=== PATIENT | male | born 1950 | race African-American/Black ===

== ENCOUNTER 2016-05-09 02:49 | Emergency (ER) | payer OTHER ==
[~2016-05-09] VITALS: Ht 180.3 cm; Wt 83.9 kg
[~2016-05-09 02:49] MED LIST: ACETAMINOPHEN650 M5 PO; ALBUTEROL2.5 MG/31; AMITRIPTYLINE; ASA5UEC PO; BISACODYL SUPP10 MG; BUDEPRION SR150 MG PO; CARDURA4 MG PO; CATAPRESS3 TOP; CITRATE OF MAG296 ML; CLONAZEPAM PO; COLACE 100 MG100 MG PO; COUMADIN 2 MG TA2 M1 PO; CRESTOR20 MG PO; FERRO-TIME325 MG PO; FISH OIL 1,0001 EAC5 PO; FLEXERIL; FLOMAX PO; FLONASE 0.05%50 MCG INH; GABAPENTIN; ISORDIL40 MG PO; K-DUR 20 MEQ T20 MEQ PO; LABETALOL PO; LEVEMIR SQ; LIDODERM; MAALOX525 MG/15; MIRALAX255 GM; NEURONTIN 300M300 M2 PO; NEURONTIN600 MG PO; NITROGLYCERIN0.4 MG; NORCO 7.5-3251 EACH PO; NORVASC10 MG PO; NOVOLOG100 UNIT/1; OXYBUTYNIN PO; PLAVIX 75 MG TA75 MG PO; RANEXA1000 MG PO; SENOKOT PO; SORBITOL PO; VANCO IV; VITAMIN D-32000 UNIT PO; ZAROXOLYN 5MG TA5 M1 PO; [UNRECOGNIZED DRUG - OTHER]
[2016-05-09 03:19] LABS: HEMATOCRIT 26.8 % (42.0-52.0); MCH 31.4 pg (26.0-34.0); MCHC 33.4 % (28.0-37.0); MCV 93.9 fL (80.0-100.0); PLATELET COUNT 143 thou/uL (150-400); RBC 2.85 mil/uL (4.50-6.00); RDW 17.4 % (10.5-14.5); WBC 4.7 thou/uL (4.0-11.0)
[2016-05-09 03:25] LABS: MANUAL DIFF YES
[2016-05-09] MEDS ORDERED: LEVOTHYROXIN0.025 MG PO (03:28)
[2016-05-09] MEDS ORDERED: KEPPRA 500 MG500 M1 PO ×2 (03:28→03:32)
[2016-05-09] MEDS ORDERED: ZOLOFT50 MG PO (03:30)
[2016-05-09] MEDS ORDERED: SENOKOT-S1 TA1 PO (03:32)
[2016-05-09] MEDS ORDERED: COREG25 MG PO (03:33)
[2016-05-09] MEDS ORDERED: ARICEPT 5 MG TAB5 MG PO (03:34)
[2016-05-09] MEDS ORDERED: HYDRALAZINE HC100 MG PO (03:35)
[2016-05-09] MEDS ORDERED: MELATONIN3 MG PO (03:36)
[2016-05-09] MEDS ORDERED: ISORDIL10 MG PO (03:36)
[2016-05-09] MEDS ORDERED: FISH OIL 1,001000 M2 PO (03:37)
[2016-05-09] MEDS ORDERED: PROTONIX 20 MG20 M1 PO (03:38)
[2016-05-09] MEDS ORDERED: RANEXA500 MG PO (03:38)
[2016-05-09] MEDS ORDERED: LYRICA 50 MG50 MG PO (03:38)
[2016-05-09] MEDS ORDERED: LISINOPRIL5 MG PO (03:40)
[2016-05-09 03:41] LABS: INR 1.6; PROTIME 16.4 Seconds (9.3-11.4)
[2016-05-09 03:57] LABS: CALCIUM 8.5 mg/dL (8.5-10.1); CREATININE 3.5 mg/dL (0.6-1.3); POTASSIUM 3.1 mmol/L (3.5-5.1)
[2016-05-09] MEDS ORDERED: NOVOLOG100 UNIT/1 SUBQ (04:25)
[2016-05-09] MEDS ORDERED: HUMULINR100 SUBQ ×2 (04:27→04:28)
[2016-05-09 04:42] VITALS: BP 138/71
[2016-05-09 05:29] LABS: ABSOLUTE NEUTROPHILS 3.4 thou/uL (1.4-8.2); ANISOCYTOSIS 1+; TOTAL CELL COUNT 100
== END 2016-05-09 04:42 | disposition home or self-care (01) ==
LOC: ER 02:49
PROVIDERS: Emergency Medicine
DX: E16.2 Hypoglycemia, unspecified (principal); R56.9 Unspecified convulsions; Z88.5 Allergy status to narcotic agent; Z88.6 Allergy status to analgesic agent; Z87.891 Personal history of nicotine dependence

== ENCOUNTER 2016-10-21 12:26 | Inpatient (IN) | payer OTHER ==
[~2016-10-21] VITALS: Ht 180.3 cm; Wt 82.9 kg
--- NOTE | ~2016-10-21 | EKG ---
[address] [address] ELECTROCARDIOGRAM REPORT Name: SANA ALEXANDRE Room #: 454-P ADM IN M.R.#: [id number] Admission: 10/21/16 Attend Phys: Juan Pablo Owusu MD Discharge: Date of : 48 Report #: [id number] THIS REPORT FOR: //name// [facility] ED Test Date: 2016-10-21 Test Time: 13:20:57 Pat Name: SANA ALEXANDRE Department: Room: [facility] Gender: M [employer]: 11 : 1950 Requested By: Denny Obregon Order Number: [id number] MD: Johnson Alfaro Measurements Intervals [place] Rate: 65 P: 86 VT: 128 QRS: 260 QRSD: 155 T: 114 QT: 496 QTc: 516 Interpretive Statements A-V dual-paced rhythm with some inhibition No further analysis attempted due to paced rhythm Compared to ECG 12/22/2010 21:04:13 Sinus rhythm no longer present Left-axis deviation no longer present Left bundle-branch block no longer present Myocardial infarct finding no longer present Electronically Signed On 10-25-2016 21:52:07 CDT by Johnson Alfaro [email or web address] <ELECTRONICALLY SIGNED> By: Johnson Alfaro MD 10/25/16 2152 1320 1320 Johnson Alfaro MD /EPI
[~2016-10-21 12:26] MED LIST changes: +ARICEPT 5 MG TAB5 MG PO; +COREG25 MG PO; +FISH OIL 1,001000 M2 PO; +HUMULINR100 SUBQ; +HYDRALAZINE HC100 MG PO; +ISORDIL10 MG PO; +KEPPRA 500 MG500 M1 PO; +LEVOTHYROXIN0.025 MG PO; +LISINOPRIL5 MG PO; +LYRICA 50 MG50 MG PO; +MELATONIN3 MG PO; +NOVOLOG100 UNIT/1 SUBQ; +PROTONIX 20 MG20 M1 PO; +RANEXA500 MG PO; +SENOKOT-S1 TA1 PO; +ZOLOFT50 MG PO
[2016-10-21 12:27] VITALS: BP 150/63
[2016-10-21 13:42] LABS: HEMATOCRIT 32.5 % (42.0-52.0); HEMOGLOBIN 10.9 gm/dL (14.0-18.0); MCH 30.6 pg (26.0-34.0); MCHC 33.5 g/dL (28.0-37.0); MCV 91.4 fL (80.0-100.0); PLATELET COUNT 104 thou/uL (150-400); RBC 3.55 mil/uL (4.50-6.00); RDW 15.7 % (10.5-14.5); WBC 4.4 thou/uL (4.0-11.0)
[2016-10-21 13:43] LABS: MANUAL DIFF YES
[2016-10-21 13:54] LABS: ANION GAP 7 mmol/L (7-16); BUN 51 mg/dL (7-18); CALCIUM 9.4 mg/dL (8.5-10.1); CHLORIDE 95 mmol/L (98-107); CO2 29 mmol/L (21-32); CREATININE 4.3 mg/dL (0.7-1.3); GLUCOSE 236 mg/dL (74-106); SODIUM 131 mmol/L (136-145)
[2016-10-21 13:57] LABS: INR 1.5; PROTIME 15.5 Seconds (9.3-11.4)
[2016-10-21 13:59] LABS: TROPONIN-I < 0.04 ng/mL (<0.04-0.07)
[2016-10-21 14:22] LABS: ABSOLUTE NEUTROPHILS 3.5 thou/uL (1.4-8.2); ANISOCYTOSIS 1+; LARGE PLATELETS FEW; TOTAL CELL COUNT 100
[2016-10-21 14:23] LABS: MICROCYTES FEW
[2016-10-21 15:37] LABS: URINE BILIRUBIN NEGATIVE (Negative); URINE BLOOD NEGATIVE (Negative); URINE COLOR YELLOW; URINE GLUCOSE-RANDOM* NEGATIVE (Negative); URINE KETONES TRACE (Negative); URINE NITRITE NEGATIVE (Negative); URINE PROTEIN (DIPSTICK) 2+ (Negative); URINE UROBILINOGEN 0.2 E.U./dl (0.2-1.0)
[2016-10-21 15:49] LABS: AMORPHOUS URATES Many /LPF (None Seen); HYALINE CASTS 0-3 Few /LPF (None Seen); SQUAMOUS 0-3 Few /LPF (0-3); URINE RBC 0-2 Rare /HPF (0-2); URINE WBC 6-15 Few /HPF (0-5)
[2016-10-21 16:44] VITALS: BP 172/77
[2016-10-21] MEDS ORDERED: TRAMADOL 50 MG50 MG PO (17:47)
[2016-10-21] MEDS ORDERED: BACLOFEN 10MG T10 MG PO (17:49)
[2016-10-21] MEDS ORDERED: ASPIR 8181 M1 PO (17:52)
[2016-10-21] MEDS ORDERED: TYLENOL EXTRA500 MG PO (17:53)
[2016-10-21] MEDS ORDERED: CRESTOR10 MG PO (17:58)
[2016-10-21] MEDS ORDERED: COUMADIN 2 MG TA2 M1 PO (18:02)
[2016-10-21] MEDS ORDERED: MIRALAX17 GM PO (18:05)
[2016-10-21] MEDS ORDERED: HYDRALAZINE 5050 MG PO (18:07)
[2016-10-21] MEDS ORDERED: RENA-VITE TABL0.8 MG PO (18:08)
[2016-10-21 19:50] VITALS: BP 154/89
[2016-10-21 23:24] VITALS: BP 170/78
[2016-10-22] VITALS (65 sets, daily range): BP systolic 153–241; BP diastolic 67–223
[2016-10-22] MEDS ORDERED: RANEXA500 MG PO (04:21)
[2016-10-22 07:03] LABS: ALBUMIN 3.5 g/dL (3.4-5.0); CALCIUM 9.3 mg/dL (8.5-10.1); CREATININE 4.6 mg/dL (0.7-1.3); MAGNESIUM 1.9 mg/dL (1.8-2.4); POTASSIUM 4.1 mmol/L (3.5-5.1); TOTAL BILIRUBIN 0.6 mg/dL (<0.1-1.0); TOTAL PROTEIN 7.3 g/dL (6.4-8.2)
[2016-10-22 07:37] LABS: ABG SAMPLE TYPE ARTERIAL; HCO3 27.3 mmol/L (22.0-26.0); LACTATE 1.03 mmol/L (0.5-2.0); O2(CT) 16.9 mL/dL (15.0-23.0); O2Hb 95.1 % (92.0-98.0); PCO2 40.8 mmHg (35.0-45.0); PO2 89.3 mmHg (80.0-100.0); STICK SITE L.RADIAL; pH 7.443 (7.360-7.450); sO2 97.1 % (92.0-98.0); tCO2 28.5 mmol/L (24.0-30.0)
[2016-10-22 07:38] LABS: Pressure Support 12 cm H20; VDS BIPAP SPONT TIMED cc
[2016-10-23 03:29] VITALS: BP 179/75
[2016-10-23 08:01] VITALS: BP 171/81
[2016-10-23 10:45] VITALS: BP 191/87
[2016-10-23 12:58] VITALS: BP 145/75
[2016-10-23 16:36] VITALS: BP 177/82
[2016-10-23 19:33] VITALS: BP 169/81
[2016-10-24 00:21] VITALS: BP 176/73
[2016-10-24 03:45] VITALS: BP 154/66
[2016-10-24 07:12] VITALS: BP 187/93
[2016-10-24 12:08] VITALS: BP 166/70
[2016-10-24 19:26] VITALS: BP 189/84
[2016-10-25 03:29] VITALS: BP 173/64
[2016-10-25 12:39] VITALS: BP 145/82
[2016-10-25 15:48] VITALS: BP 182/93
[2016-10-25 20:08] VITALS: BP 181/78
[2016-10-26 04:48] VITALS: BP 127/80
[2016-10-26 04:50] VITALS: BP 167/72
[2016-10-26 06:29] LABS: HEMATOCRIT 34.4 % (42.0-52.0); HEMOGLOBIN 11.5 gm/dL (14.0-18.0); MCH 30.4 pg (26.0-34.0); MCHC 33.5 g/dL (28.0-37.0); MCV 90.9 fL (80.0-100.0); RBC 3.78 mil/uL (4.50-6.00); RDW 15.6 % (10.5-14.5); WBC 6.8 thou/uL (4.0-11.0)
[2016-10-26 06:41] LABS: ALBUMIN 2.9 g/dL (3.4-5.0); CALCIUM 9.2 mg/dL (8.5-10.1); CREATININE 3.6 mg/dL (0.7-1.3); POTASSIUM 3.2 mmol/L (3.5-5.1)
[2016-10-26 08:07] VITALS: BP 178/82
== END 2016-10-26 18:50 | DRG 291 ==
LOC: ER 12:26 → EROBS 15:58 → ICU 15:58 → 3N 17:01 → ICU 10-22 04:03 → 4W 10-22 22:37
PROVIDERS: Emergency Medicine; Internal Medicine; Internal Medicine Nephrology; Nurse Practitioner
PROC: 5A09357 Assistance with Respiratory Ventilation, Less than 24 Consecutive Hours, Continuous Positive Airway Pressure (ICD-10-PCS; principal; 2016-10-22)
PROC: 5A1D60Z (ICD-10-PCS; 2016-10-26)
DX: I13.2 Hypertensive heart and chronic kidney disease with heart failure and with stage 5 chronic kidney disease, or end stage renal disease (principal); G92 Toxic encephalopathy; J96.00 Acute respiratory failure, unspecified whether with hypoxia or hypercapnia; N18.6 End stage renal disease; J18.9 Pneumonia, unspecified organism; N39.0 Urinary tract infection, site not specified; E11.22 Type 2 diabetes mellitus with diabetic chronic kidney disease; K21.9 Gastro-esophageal reflux disease without esophagitis; G47.33 Obstructive sleep apnea (adult) (pediatric); E03.9 Hypothyroidism, unspecified; F01.50 Vascular dementia, unspecified severity, without behavioral disturbance, psychotic disturbance, mood disturbance, and anxiety; G89.29 Other chronic pain; M54.9 Dorsalgia, unspecified; D69.6 Thrombocytopenia, unspecified; E11.65 Type 2 diabetes mellitus with hyperglycemia; E11.43 Type 2 diabetes mellitus with diabetic autonomic (poly)neuropathy; K31.84 Gastroparesis; D63.1 Anemia in chronic kidney disease; D64.9 Anemia, unspecified; R13.10 Dysphagia, unspecified; I25.10 Atherosclerotic heart disease of native coronary artery without angina pectoris; I50.9 Heart failure, unspecified; E78.5 Hyperlipidemia, unspecified; Z98.42 Cataract extraction status, left eye; Z95.1 Presence of aortocoronary bypass graft; Z85.46 Personal history of malignant neoplasm of prostate; Z79.899 Other long term (current) drug therapy; Z88.8 Allergy status to other drugs, medicaments and biological substances; Z88.6 Allergy status to analgesic agent; Z87.891 Personal history of nicotine dependence; Z95.5 Presence of coronary angioplasty implant and graft; Z98.41 Cataract extraction status, right eye; Z86.718 Personal history of other venous thrombosis and embolism; R26.81 Unsteadiness on feet
CPT/HCPCS: 10045; 10096; 32100

== ENCOUNTER 2016-11-09 17:26 | Emergency (ER) | payer OTHER ==
[~2016-11-09] VITALS: Ht 170.2 cm; Wt 84.4 kg
[~2016-11-09 17:26] MED LIST changes: +ASPIR 8181 M1 PO; +BACLOFEN 10MG T10 MG PO; +CRESTOR10 MG PO; +HYDRALAZINE 5050 MG PO; +MIRALAX17 GM PO; +RENA-VITE TABL0.8 MG PO; +TRAMADOL 50 MG50 MG PO; +TYLENOL EXTRA500 MG PO
== END 2016-11-09 19:12 ==
LOC: ER 17:26
DX: T82.838A Hemorrhage due to vascular prosthetic devices, implants and grafts, initial encounter (principal); G47.33 Obstructive sleep apnea (adult) (pediatric); K21.9 Gastro-esophageal reflux disease without esophagitis; E03.9 Hypothyroidism, unspecified; I12.0 Hypertensive chronic kidney disease with stage 5 chronic kidney disease or end stage renal disease; E11.22 Type 2 diabetes mellitus with diabetic chronic kidney disease; N18.6 End stage renal disease; Z85.46 Personal history of malignant neoplasm of prostate; Z99.2 Dependence on renal dialysis; Z79.4 Long term (current) use of insulin; Z88.5 Allergy status to narcotic agent; Z87.891 Personal history of nicotine dependence; Z88.8 Allergy status to other drugs, medicaments and biological substances; Y84.1 Kidney dialysis as the cause of abnormal reaction of the patient, or of later complication, without mention of misadventure at the time of the procedure; Y92.89 Other specified places as the place of occurrence of the external cause